=== PATIENT | female | born 2000 | race Caucasian/White ===

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

== ENCOUNTER 2019-01-09 22:39 | Emergency (ER) | payer BC ==
[~2019-01-09] VITALS: Ht 162.6 cm; Wt 55.0 kg
[~2019-01-09 22:39] MED LIST: CYCL10TA7 PO; IBUP-1561 PO; MAGN400O19 PO; ONDA4TAB14 PO
[2019-01-09 22:46] VITALS: Ht 162.6 cm; Wt 55.0 kg
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
[2019-01-10 00:30] VITALS: BP 122/80; PULSE 72; RESP 20
== END 2019-01-10 00:32 | disposition home or self-care (01) ==
LOC: FTE 22:39
DX: M79.604 Pain in right leg (principal); K59.00 Constipation, unspecified
CPT/HCPCS: 99283